=== PATIENT | female | born 1970 | race Two or more races ===

== ENCOUNTER 2018-11-24 11:00 | Emergency (ER) | payer MEDICAID ==
[~2018-11-24] VITALS: Ht 167.6 cm; Wt 106.6 kg
[2018-11-24 11:05] VITALS: BP 128/52
== END 2018-11-24 12:36 | disposition home or self-care (01) ==
LOC: ER 11:15
DX: B00.9 Herpesviral infection, unspecified (principal); N30.00 Acute cystitis without hematuria; Z32.02 Encounter for pregnancy test, result negative
CPT/HCPCS: 81002; 81025